=== PATIENT | female | born 1975 | race Hispanic/Latino ===

== ENCOUNTER 2024-04-29 12:49 | Emergency (ER) | payer SELFPAY ==
[2024-04-29 12:51] VITALS: BP 216/107; PULSE 90; RESP 16; TEMP 37; O2SAT 97; BMI 35.9
--- NOTE | 2024-04-29 12:56 | DI.RAD.S_ITS ---
PROCEDURE: XR SHOULDER RT MIN 2V INDICATIONS: fall, shoulder pain TECHNIQUE: 3 views of the shoulder were acquired. COMPARISON: None. FINDINGS: Bones: No fractures or dislocations. No suspicious bony lesions. Visualized ribs appear intact. Soft tissues: No suspicious soft tissue calcifications. IMPRESSION: No acute bony abnormality. Approved by: Felix Quarles M.D. on 04/29/2024 at 13:27
--- NOTE | 2024-04-29 13:03 | ED.FALL ---
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 Patient complains of right shoulder pain. 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 Patient presents with right shoulder pain. She did not hit her head, no loss of consciousness, ice and Tylenol prior to being seen here in the emergency department. Limited range of motion of the right shoulder no other further complaints. Related Data Allergies Allergy/AdvReac Type Severity Reaction Status Date / Time No Known Drug Allergies Allergy Verified 12/01/18 18:34 Review of Systems <Ирина Lackey PA-C - Last Filed: 04/29/24 14:33> Review of Systems Narrative: Negative except as negative except as above Musculoskeletal Comments: Limited range of right shoulder, right shoulder pain, from a fall. Patient History <Ирина Lackey PA-C - Last Filed: 04/29/24 14:33> Social History Smoking Status: Never smoker Smoking Status: Never smoker Exam <Ирина Lackey PA-C - Last Filed: 04/29/24 14:33> Initial Vital Signs Initial Vital Signs: Vital Signs Temperature 98.6 F 04/29/24 12:51 Pulse Rate 90 04/29/24 12:51 Respiratory Rate 16 04/29/24 12:51 Blood Pressure 216/107 H 04/29/24 12:51 Pulse Oximetry 97 04/29/24 12:51 Oxygen Delivery Method Room Air 04/29/24 12:51 Reviewed Const General: cooperative, healthy appearing, comfortable, well developed, well groomed, No acute distress, No in distress and No anxious Orientation: Orientation (Normal) Eyes General: Yes appearance normal, both eyes and all related structures Pupils: PERRL EOM: EOM intact bilaterally Skin Other: Warm pink and dry Neuro Other: Cranial nerves are grossly intact cognition, gait all within normal limits Extrem Other: Range of motion, strength, pulses, cap refill preserved in the lower extremities and left upper extremity. Examination of the right upper extremity, the hand, wrist, elbow, humerus no pain with palpation, range of motion is normal, pain with palpation of the right shoulder, no pain with palpation to the clavicle, limited range of motion due to discomfort and pain. No obvious deformity. Patient has discomfort and pain with abduction, attempt at flexion and extension. Psych Other: Appearance, mental status, speech, movement, mood, affect, attitude, thought process, thought content and judgment are all within normal limits. <Trinity Estrada DO - Last Filed: 04/30/24 08:15> Initial Vital Signs Initial Vital Signs: Vital Signs Temperature 98.6 F 04/29/24 12:51 Pulse Rate 90 04/29/24 12:51 Respiratory Rate 16 04/29/24 12:51 Blood Pressure 216/107 H 04/29/24 12:51 Pulse Oximetry 97 04/29/24 12:51 Oxygen Delivery Method Room Air 04/29/24 12:51 Scores <Ирина Lackey PA-C - Last Filed: 04/29/24 14:33> GCS Citation: 15 Course <Ирина Lackey PA-C - Last Filed: 04/29/24 14:33> Orders Ordered: Discontinued Medications Acetaminophen (Acetaminophen 325 Mg Tablet) 500 mg PO NOW ONE Stop: 04/29/24 13:19 Last Admin: 04/29/24 13:23 Dose: 325 mg Documented By: REX Vital Signs Vital signs: Vital Signs - 8 hr 04/29/24 12:51 Temperature 98.6 F Pulse Rate 90 Respiratory Rate 16 Blood Pressure 216/107 H Pulse Oximetry 97 Oxygen Delivery Method Room Air Reviewed <Trinity Estrada DO - Last Filed: 04/30/24 08:15> Orders Ordered: Discontinued Medications Acetaminophen (Acetaminophen 325 Mg Tablet) 500 mg PO NOW ONE Stop: 04/29/24 13:19 Last Admin: 04/29/24 13:23 Dose: 325 mg Documented By: REX Vital Signs Vital signs: Vital Signs - 8 hr 04/29/24 12:51 Temperature 98.6 F Pulse Rate 90 Respiratory Rate 16 Blood Pressure 216/107 H Pulse Oximetry 97 Oxygen Delivery Method Room Air MDM - Fall <Ирина Lackey PA-C - Last Filed: 04/29/24 14:33> Imaging Data Extremity x-ray #1: My Impression: No acute fractures are seen. Radiologist's Impression: [address] [address] XRay Report Signed Patient: Dennise Hinton MR#: [id number] : 1975 Acct:[id number] Age/Sex: 48 / F Date of Service: 04/29/24 Loc: ED Accession Number: [id number] Procedure: XR shoulder RT min 2V Ordering Provider: Trinity Estrada D.O. PROCEDURE: XR SHOULDER RT MIN 2V INDICATIONS: fall, shoulder pain TECHNIQUE: 3 views of the shoulder were acquired. COMPARISON: None. FINDINGS: Bones: No fractures or dislocations. No suspicious bony lesions. Visualized ribs appear intact. Soft tissues: No suspicious soft tissue calcifications. IMPRESSION: No acute bony abnormality. Approved by: Felix Quarles M.D. on 04/29/2024 at 13:27 MDM Narrative Medical decision making narrative: Pleasant 48-year-old female presents to the emergency room department today after a fall at work onto her right shoulder. No loss of consciousness, did not hit her head. Ice and Tylenol prior to being seen here in the emergency department. Limited range of motion due to discomfort and pain. Tylenol here in the emergency department X-ray of the right shoulder negative for any acute fractures Sling Supportive therapy education, ED precautions Pendulum exercises Follow-up with your primary care doctor in 7-10 days for re-evaluation Return to the emergency department as needed Differential diagnosis; shoulder contusion, possible internal derangement, possible labrum tear, possible rotator cuff tear. Discharge Plan Departure Patient Disposition: Home Clinical Impression: Contusion of right shoulder Qualifiers: Encounter type: initial encounter Qualified Code(s): S40.011A - Contusion of right shoulder, initial encounter Activity Restrictions/Additional Instructions: Your x-ray is negative for acute fracture Sling for comfort Tylenol, ibuprofen for pain Ice to the shoulder Please follow up with her primary care doctor in 7-10 days for re-evaluation of the shoulder to see if it is improving, if not better you might need further evaluation with either a CT scan or an MRI Referrals: Colleen De MD [Primary Care Provider] - Stand Alone Forms: Patient Portal/API ED Sign-out <Trinity Estrada DO - Last Filed: 04/30/24 08:15> Cosign ED Attending Cosignature Attestation: I was available for consultation.
[2024-04-29] MEDS: ACETAMINOPHEN 325 MG TABLET 500 MG PO (13:23)
[2024-04-29 14:42] VITALS: BP 189/100; PULSE 92; RESP 18; O2SAT 98
== END 2024-04-29 14:42 | disposition home or self-care (01) ==
PROVIDERS: Emergency Provider Physician Assistant; Family Provider Family Medicine; PCP Family Medicine
DX: S40.011A Contusion of right shoulder, initial encounter (principal); W01.0XXA Fall on same level from slipping, tripping and stumbling without subsequent striking against object, initial encounter
CPT/HCPCS: 73030; 99283; 99284